=== PATIENT | male | born 1965 | race African-American/Black ===

== ENCOUNTER 2017-03-24 23:29 | Emergency (ER) | payer OTHER ==
[~2017-03-24] VITALS: Ht 172.7 cm; Wt 100.9 kg
[~2017-03-24 23:29] MED LIST: ASPIRIN 32325 MG/TAB PO; CEPHALEXIN500 M1 PO; CIPRO 500MG TA500 MG PO; CRESTOR5 MG PO; FISH OIL CONC1000 MG PO; FORTAMET500 MG PO; LISINOPRIL/HCTZ1 TAB PO; LISINOPRIL10 MG PO; METFORMIN ER500 MG PO; NAPROSYN500 MG PO; NIACIN100 MG; NORCO 325 MG-51 TAB PO; NORCO 325 MG-7.1 TAB PO; TOPROL XL 25MG25 MG PO; ZESTRIL40 MG PO; ZITHROMAX 250M250 MG PO; ZOCOR 20MG20 MG PO; [UNRECOGNIZED DRUG - OTHER]; bp med
[2017-03-24 23:37] VITALS: TEMP 98
[2017-03-25 01:25] VITALS: BP 156/87; PULSE 79
== END 2017-03-25 01:38 | disposition home or self-care (01) ==
LOC: COL.ER 23:29
DX: R07.89 Other chest pain (principal); I10 Essential (primary) hypertension; Z79.82 Long term (current) use of aspirin
CPT/HCPCS: J1885; J8540

== ENCOUNTER 2019-10-11 03:39 | Inpatient (IN) | payer OTHER ==
[~2019-10-11] VITALS: Ht 172.7 cm; Wt 94.8 kg
[2019-10-11] VITALS (387 sets, daily range): BP systolic 129–165; BP diastolic 84–107; PULSE 70–92; TEMP 98–98.5; O2SAT 90–100
[2019-10-11 04:40] LABS: BASO # 0.1 (0.0-0.2); BASO % 1.3 % (0.0-2.0); EOS # 0.3 (0.0-0.7); EOS % 4.7 % (0-4.0); GRAN % 37.3 % (42.2-75.2); HEMATOCRIT 47.8 % (42.0-52.0); LYMPH # 2.4 (1.2-3.4); LYMPH % 44.1 % (20.0-51.0); MEAN CELL VOLUME 95 fl (80.0-100.0); MEAN CORPUSCULAR HEMOGLOBIN 32 pg (27.0-31.0); MEAN CORPUSCULAR HGB CONC 34 g/dl (33.0-37.0); MEAN PLATELET VOLUME 10.6 fl (7.4-10.4); MONO # 0.7 (0.1-0.6); MONO % 12.4 % (1.7-9.3); PLATELET COUNT 183 K/mm3 (130-400); RED BLOOD COUNT 5.02 M/mm3 (4.20-5.60); REDCELL DISTRIBUTION WIDTH-CV 13.6 % (11.5-14.5)
[2019-10-11 04:42] LABS: PROTHROMBIN TIME 11.6 SECONDS (9.7-12.8)
[2019-10-11 04:46] LABS: ALANINE AMINOTRANSFERASE 40 U/L (4-49); ALBUMIN 4.5 gm/dL (3.5-5.0); ALKALINE PHOSPHATASE 131 U/L (50-136); ANION GAP 11 mmol/L (7-16); AST,SGOT 37 U/L (15-37); BILIRUBIN,TOTAL 0.4 mg/dL (0.0-1.0); BLOOD UREA NITROGEN 18 mg/dL (9-20); CALCIUM 9.9 mg/dL (8.4-10.2); CARBON DIOXIDE 23 mmol/L (22-30); CHLORIDE 102 mmol/L (98-107); GLUCOSE 161 mg/dL (74-106); POTASSIUM 3.9 mmol/L (3.4-5.0); SODIUM 136 mmol/L (137-145); TOTAL PROTEIN 8.6 gm/dL (6.4-8.2)
[2019-10-11 05:01] LABS: TROPONIN-I < 0.012 ng/mL (0.000-0.035)
--- NOTE | 2019-10-11 19:10 | NUR ---
RECEIVED REPORT FROM HERRERA MAYFIELD. PT SITTING UP IN BED TALKING ON THE PHONE ON RA. CALL LIGHT WITHIN REACH. VSS.
[2019-10-12] VITALS (341 sets, daily range): BP systolic 112–170; BP diastolic 74–100; PULSE 64–82; TEMP 97.5–98.7; O2SAT 82–100
[2019-10-12 06:02] LABS: BASO # 0.1 (0.0-0.2); BASO % 1.2 % (0.0-2.0); EOS # 0.2 (0.0-0.7); GRAN # 1.8 (1.4-6.5); GRAN % 42.9 % (42.2-75.2); HEMATOCRIT 46.7 % (42.0-52.0); HEMOGLOBIN 15.3 g/dl (13.5-18.0); LYMPH # 1.7 (1.2-3.4); LYMPH % 39.1 % (20.0-51.0); MEAN CELL VOLUME 96 fl (80.0-100.0); MEAN CORPUSCULAR HEMOGLOBIN 31 pg (27.0-31.0); MEAN CORPUSCULAR HGB CONC 33 g/dl (33.0-37.0); MEAN PLATELET VOLUME 10.4 fl (7.4-10.4); MONO # 0.5 (0.1-0.6); MONO % 12.6 % (1.7-9.3); PLATELET COUNT 177 K/mm3 (130-400); RED BLOOD COUNT 4.88 M/mm3 (4.20-5.60); REDCELL DISTRIBUTION WIDTH-CV 13.3 % (11.5-14.5)
[2019-10-12 06:04] LABS: ALBUMIN 4.2 gm/dL (3.5-5.0); BILIRUBIN,TOTAL 0.5 mg/dL (0.0-1.0); CALCIUM 9.3 mg/dL (8.4-10.2); CHOLESTEROL RISK RATIO 6.7; CREATININE, serum 1.18 (0.66-1.25); POTASSIUM 4.3 mmol/L (3.4-5.0); TOTAL PROTEIN 8.1 gm/dL (6.4-8.2)
--- NOTE | 2019-10-12 15:32 | NUR ---
SW met with patient to complete intake. Patient states that he lives in [place] with his girl friend. Patient states that he does not utilize any DME and is independent with ADL's. Patient provides that his P[facility] is [facility]. Patient states that he is able to afford his medications. Patient provides that he has already filled out DPOA-HC documentation listing his sister Lashon [phone], alt DPOA-HC his daughter Erlinda [phone] as well as his girlfriend Anna [phone]. Patient states that his plan is to go back home with his girlfriend upon discharge. SW will continue to follow.
--- NOTE | 2019-10-12 18:09 | NUR ---
Patient has done well since transfer from [facility]. he is alert & oriented. He showered, shaved, brushed his teeth. Tolerating diet. Insulin with dinner. Int x2. Tele on Vss. Will transfer to night nurse
[2019-10-12] MEDS ORDERED: PLAVIX 75MG TAB75 MG PO (20:46)
[2019-10-12] MEDS ORDERED: HCTZ 25MG TAB25 MG PO (20:47)
[2019-10-12] MEDS ORDERED: TOPROL XL100 MG PO (20:48)
[2019-10-12] MEDS ORDERED: JARDIANCE25 PO (20:50)
[2019-10-12] MEDS ORDERED: GLUCOTROL10 MG PO (20:50)
[2019-10-12] MEDS ORDERED: ZOCOR 40MG40 MG PO (20:52)
[2019-10-12] MEDS ORDERED: GLUCOPHAGE500 MG/TAB PO (20:53)
--- NOTE | 2019-10-12 21:28 | NUR ---
REVIEWED HOME MEDS WITH PATIENT AND UPDATED TO CURRENT REGIMEN. SL TO RIGHT WRIST DC'D. SL TO LEFT FOREARM FLUSHES WELL. IS ALERT AND ORIENTED X4. STEADY GAIT AND DENIES WEAKNESS.
[2019-10-13] VITALS: BP 107/58; PULSE 64; TEMP 98
[2019-10-13 04:00] VITALS: BP 146/72; PULSE 78; TEMP 98.6
--- NOTE | 2019-10-13 05:00 | NUR ---
Pt without concerns this shift.
--- NOTE | 2019-10-13 08:00 | NUR ---
PATIENT IS A&O. VSS. PATIENT C/O LEFT SHOULDER PAIN THAT IS RADIATING FROM HIS BACK DOWN HIS ARM. PATIENT REPORTS HE EXPERIENCED THIS "NERVE PAIN" YESTERDAY TOO AND REPORTS IT COMES AND GOES. GAVE PRN NORCO AND APPLIED WARM BLANKET TO LUE. HOSPITALIST NOTIFIED. PATIENT SCHEDULED FOR ECHO THIS AM. TELE INPLACE WITH HR IN 70'S. AM MEDS GIVEN. NO C/O N/V. BREAKFAST TRAT AT BEDSIDE. AM BS WAS 172, SSI GIVEN. HEAD TO TOE ASSESSMENT COMPLETE. NO OTHER NEEDS AT THIS TIME. CALL LIGHT IN REACH.
[2019-10-13 08:04] VITALS: BP 135/63; PULSE 76; TEMP 98.5
--- NOTE | 2019-10-13 10:19 | NUR ---
Initial visit; Patient thanked Transcribing Operators Supervisor for looking in on him and keeping him in Transcribing Operators Supervisor's prayers. Patient experiencing a lot of pain and asks that Transcribing Operators Supervisor visit again.
--- NOTE | 2019-10-13 10:45 | NUR ---
HOSPITALIST TEAM ROUNDING, SEE ORDERS.
[2019-10-13] MEDS ORDERED: NICODERM C21 MG/PATC TD ×2 (10:47)
[2019-10-13] MEDS ORDERED: PLAVIX 75MG TAB75 MG PO ×2 (10:48)
[2019-10-13] MEDS ORDERED: LIPITOR 40MG TA40 MG PO ×2 (10:49)
[2019-10-13] MEDS ORDERED: EPA FISH OIL1000 MG PO ×2 (10:51)
[2019-10-13] MEDS ORDERED: ASPIRIN 81M81 MG/TA2 PO ×2 (10:53)
--- NOTE | 2019-10-13 11:04 | NUR ---
SW met with the patient to review discharge plan and to follow up about primary care. The patient appeared upset and irritated with SW visit. The patient reports that he still plans on returning home with his girlfriend upon discharge. He states that he already has a PCP, Dr. Willson, at the [facility] and that he has an appointment with her on 10/23. No additional needs at this time.
[2019-10-13 12:04] VITALS: BP 123/47; PULSE 85; TEMP 97.5
[2019-10-13 12:10] VITALS: BP 121/80; PULSE 70; TEMP 97.7
--- NOTE | 2019-10-13 14:20 | NUR ---
PATIENT DISCHARGING HOME VIA WC TO PERSONAL VEHICLE WHERE DAUGHTER IS WAITING. GAVE DISCHARGE INSTRUCTIONS, PRESCRIPTIONS SENT ELECTRONICALLY, AND F/U APT WITH [facility] REVIEWED. ANSWERED [facility]. DC'D LEFT WRIST IV, COVERED SITE WITH [employer]. TELE DC'D. PATIENT DRESSED AND READY FOR DISCHARGE.
== END 2019-10-13 14:20 | disposition home or self-care (01) | DRG 66 ==
LOC: COL.ER 03:39 → ICU 10:49 → SURG 10:49
PROVIDERS: Emergency Medicine
DX: I63.9 Cerebral infarction, unspecified (principal); I10 Essential (primary) hypertension; E78.5 Hyperlipidemia, unspecified; F17.210 Nicotine dependence, cigarettes, uncomplicated; I16.0 Hypertensive urgency; E11.9 Type 2 diabetes mellitus without complications; Z79.84 Long term (current) use of oral hypoglycemic drugs
CPT/HCPCS: 99223-AI; 99233-AI; A9585; J1650; J1815; Q9967

== ENCOUNTER → 2023-05-24 | Outpatient (CLI) | payer OTHER ==
[~2023-05-24] MED LIST changes: +ASPIRIN 81M81 MG/TA2 PO; +EPA FISH OIL1000 MG PO; +GLUCOPHAGE500 MG/TAB PO; +GLUCOTROL10 MG PO; +HCTZ 25MG TAB25 MG PO; +JARDIANCE25 PO; +LIPITOR 40MG TA40 MG PO; +NICODERM C21 MG/PATC TD; +PLAVIX 75MG TAB75 MG PO; +TOPROL XL100 MG PO; +ZOCOR 40MG40 MG PO
== END ==
LOC: MHCPAIN 12:52
DX: M48.062 Spinal stenosis, lumbar region with neurogenic claudication (principal)
CPT/HCPCS: G0463

== ENCOUNTER → 2023-06-07 | Outpatient (CLI) | payer OTHER ==
[~2023-06-07] MED LIST changes: +Iohexol 300 - 10 ML VIAL ONE; +Lidocaine PF 2% (20 MG/ML) 2 ML VIAL ONE
== END ==
LOC: MHCPAIN 07:55
DX: M54.16 Radiculopathy, lumbar region (principal)
CPT/HCPCS: J1100; Q9967

== ENCOUNTER → 2023-06-21 | Outpatient (CLI) | payer OTHER ==
[~2023-06-21] MED LIST changes: -Iohexol 300 - 10 ML VIAL ONE; -Lidocaine PF 2% (20 MG/ML) 2 ML VIAL ONE
== END ==
LOC: MHCPAIN 11:30
DX: M48.062 Spinal stenosis, lumbar region with neurogenic claudication (principal)
CPT/HCPCS: G0463

== ENCOUNTER → 2023-09-24 | Outpatient (CLI) | payer OTHER ==
[~2023-09-24] MED LIST changes: +Iohexol 300 - 10 ML VIAL ONE; +Lidocaine PF 2% (20 MG/ML) 2 ML VIAL ONE
== END ==
LOC: MHCPAIN 08:00
DX: M54.16 Radiculopathy, lumbar region (principal)
CPT/HCPCS: J1100; Q9967

== ENCOUNTER → 2023-11-01 | Outpatient (CLI) | payer OTHER ==
[~2023-11-01] MED LIST changes: -Iohexol 300 - 10 ML VIAL ONE; -Lidocaine PF 2% (20 MG/ML) 2 ML VIAL ONE
== END ==
LOC: MHCPAIN 09-13 13:59
DX: M48.062 Spinal stenosis, lumbar region with neurogenic claudication (principal)
CPT/HCPCS: G0463

== ENCOUNTER → 2024-01-08 | Outpatient (CLI) | payer OTHER | LOC: MHCPAIN 09:58 | DX: M48.062 Spinal stenosis, lumbar region with neurogenic claudication (principal); E11.9 Type 2 diabetes mellitus without complications; Z79.84 Long term (current) use of oral hypoglycemic drugs | CPT/HCPCS: G0463 ==